=== PATIENT | male | born 1995 | race Caucasian/White ===

== ENCOUNTER → 2020-08-16 | Outpatient (CLI) | payer BC ==
--- NOTE | 2020-08-16 22:16 | CARD ---
MR#: [id number] Date of Study: 08/16/2020 Ordering Physician: ISABELLE RILEY, Referring Physician: ISABELLE RILEY, Tech: Elise Elbaaisha, [facility] APPROVED REPORT EXAM: Two-dimensional and M-mode echocardiogram with Doppler and color Doppler. Other Information Quality : AverageHR: 98bpm Technically limited study due to body habitus. INDICATION LV Function:SystolicDiastolic 2D DIMENSIONS RVDd2.2 (2.9-3.5cm)Left Atrium(2D)3.3 (1.6-4.0cm) IVSd1.0 (0.7-1.1cm)Aortic Root(2D)2.9 (2.0-3.7cm) LVDd5.4 (3.9-5.9cm)LVOT Diameter2.1 (1.8-2.4cm) PWd1.2 (0.7-1.1cm)LVDs3.8 (2.5-4.0cm) FS (%) 29.4 %SV78.6 ml LVEF(%)55.9 (>50%) Aortic Valve AoV Peak Wilfrido.150.7cm/sAoV VTI25.8cm AO Peak GR.9.1mmHgLVOT Peak Wilfrido.149.6cm/s LVOT VTI 23.74cmAO Mean GR.5mmHg JADEN (VMAX)2.97vu6DLC (VTI)3.15cm2 Mitral Valve MV E Wecppukq77.3cm/sMV DECEL JHTN840su MV A Cfjymkoy80.4cm/sMV BSM31bc E/A Ratio1.5MVA (PHT)3.77cm2 TDI E/Lateral E'6.0E/Medial E'8.8 Pulmonary Valve PV Peak Fhdgnkks981.1cm/sPV Peak Grad.5mmHg Tricuspid Valve TR P. Pvyrkkdr185eb/sRAP FMFTQRBZ2ddNz TR Peak Gr.78naOmCGIZ55efHi Pulmonary Vein S1 Odgafzhb50.3cm/sD2 Lklnzxgx76.8cm/s PVa gzetnlhz200gauh LEFT VENTRICLE The left ventricle is normal size. There is borderline to mild concentric left ventricular hypertroph y. The left ventricular systolic function is normal and the ejection fraction is within normal range. The Ejection Fraction is 55%. There is normal LV segmental wall motion. Transmitral Doppler flow pat tern is Grade II-pseudonormal filling dynamics. RIGHT VENTRICLE The right ventricle is normal size. There is normal right ventricular wall thickness. The right ventr icular systolic function is normal. ATRIA The left atrium size is normal. The right atrium size is normal. The interatrial septum is intact wit h no evidence for an atrial septal defect or patent foramen ovale as noted on 2-D or Doppler imaging. AORTIC VALVE The aortic valve is normal in structure and function. Doppler and Color Flow revealed no significant aortic regurgitation. There is no significant aortic valvular stenosis. Calculated aortic valve area is 3.24 cm2 with maximum pressure gradient of 9 mmHg and mean pressure gradient of 5 mmHg. MITRAL VALVE The mitral valve is normal in structure and function. There is no evidence of mitral valve prolapse. There is no mitral valve stenosis. Doppler and Color-flow revealed trace mitral regurgitation. TRICUSPID VALVE The tricuspid valve is normal in structure and function. Doppler and Color Flow revealed trace tricus pid regurgitation with an estimated PAP of 19 mmHg. There is no tricuspid valve stenosis. PULMONIC VALVE The pulmonic valve is not well visualized. Doppler and Color Flow revealed trace pulmonic valvular re gurgitation. There is no pulmonic valvular stenosis. GREAT VESSELS The aortic root is normal in size. The IVC was not well visualized. PERICARDIAL EFFUSION There is no evidence of significant pericardial effusion. Critical Notification Critical Value: No <Conclusion> The left ventricular systolic function is normal and the ejection fraction is within normal range. Th e Ejection Fraction is 55%. There is normal LV segmental wall motion. Signed by : Rashawn Fernandes, Electronically Approved : 08/16/2020 22:15:58
== END ==
LOC: ECHO 12:57
PROVIDERS: ATTEND Internal Medicine Critical Care Medicine
DX: I50.9 Heart failure, unspecified (principal); I50.1 Left ventricular failure, unspecified
CPT/HCPCS: 93306